=== PATIENT | male | born 1965 | race African-American/Black ===

== ENCOUNTER 2017-03-30 09:07 | Inpatient (IN) | END 2017-04-02 12:43 | disposition home or self-care (01) | DRG 494 | DX: S82.872A Displaced pilon fracture of left tibia, initial encounter for closed fracture (principal); S82.62XA Displaced fracture of lateral malleolus of left fibula, initial encounter for closed fracture; S92.001A Unspecified fracture of right calcaneus, initial encounter for closed fracture; W17.89XA Other fall from one level to another, initial encounter; Y99.0 Civilian activity done for income or pay ==